=== PATIENT | female | born 1980 ===

== ENCOUNTER 2017-09-07 20:05 | Emergency (ER) | payer OTHER ==
[~2017-09-07] VITALS: Ht 170.2 cm; Wt 68.0 kg
[~2017-09-07 20:05] MED LIST: ALBU90OI INH; ALBU90OI61 INH; AZIT250 PO; CEPH500 PO; FAMO20 PO; LEVFLO500 PO; MULVITMINE; OMEP10ER PO; PRED10 PO; PRED20 PO; Percocet 5-3251 EACH PO; Prednisone20 MG PO; Zithromax250 MG PO; Zofran Odt8 MG SL
[2017-09-07] MEDS ORDERED: Robaxin500 MG PO (23:40)
== END 2017-09-08 00:10 | disposition home or self-care (01) ==
LOC: ER 20:05
DX: S00.11XA Contusion of right eyelid and periocular area, initial encounter (principal); S60.221A Contusion of right hand, initial encounter; R51 Headache; M25.511 Pain in right shoulder; M25.521 Pain in right elbow; J45.909 Unspecified asthma, uncomplicated; K21.9 Gastro-esophageal reflux disease without esophagitis; Z91.030 Bee allergy status; Z79.899 Other long term (current) drug therapy; Z90.710 Acquired absence of both cervix and uterus; Z90.89 Acquired absence of other organs; Y04.2XXA Assault by strike against or bumped into by another person, initial encounter
CPT/HCPCS: 73030; 73080; 73130; 96372; 99283; J0780; J1885; Q0163

== ENCOUNTER → 2018-02-25 | Outpatient (CLI) | payer OTHER ==
[~2018-02-25] MED LIST changes: +Robaxin500 MG PO
== END | disposition home or self-care (01) ==
LOC: OLS 15:15 → LAB SHORT 15:15
PROVIDERS: Nurse Practitioner
DX: Z01.419 Encounter for gynecological examination (general) (routine) without abnormal findings (principal)
CPT/HCPCS: G0145

== ENCOUNTER 2019-07-29 13:22 | Day surgery (SDC) | payer OTHER ==
[~2019-07-29] VITALS: Ht 170.2 cm; Wt 73.7 kg
--- NOTE | 2019-07-29 14:28 | NUR ---
07/29/19 1428 Fara Shankar S PT. HAVING UPPER ABD. PAIN. FEELS LIKE IT IS FREEZING & THEN FULL FEELING. THIS IS WHAT SHE DEALS WITH EVERYDAY PER PT.
--- NOTE | 2019-07-29 16:24 | NUR ---
07/29/[address] STARTED UPPER ENDO AT 1447 AFTER PT. HAD HAD 200MG IV PROPOFOL & 2MG IV VERSED. PT. WITH STRIDOR SOUNDS, START OF A LARYNGOSPASM SO 30MG IV 2%LIDOCAINE GIVEN IV PER DR. ROONEY ORDER AT 1449. DR. ROONEY HAD PULLED OUT HIS SCOPE TO HAVE PT. WAKE UP. PT. SATS DOWN TO 91%. JAW THRUST PERFORMED, O2 UP TO 5L/NC. PT. WAS ALSO SUCTIONED FOR LARGE AMT. CLEAR SECRETIONS. PT. COUGHING WHEN SCOPE INSERTED & PT. ALSO COUGHING AFTER DR. FERNANDEZ PULLED SCOPE OUT. 1454 ROBINUL 0.2MG IV GIVEN TO PT. PER ORDER TO HELP DRY OUT SECRETIONS. 1457 PT. AWAKE & TALKING & EXPLAINED TO HER THAT WE HAD TO WAKE HER UP SINCE SHE STARTED COUGHING. ALSO EXPLAINED TO HER THAT WE WERE GOING TO PUT HER BACK TO SLEEP. BITE BLOCK PLACED AGAIN & STARTED RESEDATING PT. AT 1457. DR. ROONEY RESTARTED UPPER AT 1500. JAW THRUST WAS PERFORMED T.O. CASE. ALSO SUCTIONED OFF & ON FOR CLEAR SECRETIONS. O2 WAS LEFT AT 5L/NC FOR PROCEDURE. PT. WAS ALSO GIVEN 4MG IV ZOFRAN AT 1437 PRIOR TO START OF 1ST ATTEMPT AT UPPER. PT. HAD VERBALIZED THAT SHE USUALLY GETS SICK AFTER HAVING ANESTHESIA.
--- NOTE | 2019-07-29 16:30 | NUR ---
07/29/19 1630 RaadFara S PT. TAKEN TO SD 1527. PT. COUGHING & WITH SCATTERED WHEEZES. SATS 98-100%. PT. DENIED SOB BUT VERBALIZES HAVING SEVERE ASTHMA ATTACKS & USES HER INHALER VERY OFTEN T.O. THE DAY. PT. HAD ASKED HER FOR HER INHALER BUT HAD LEFT IT IN THE CAR. DR. ROONEY WAS NOTIFIED & A DUO NEB. WAS GIVEN PER DR. SAAVEDRA. PT. DENIED HAVING A SORE THROAT. PT. DID FEEL IN HER CHEST THAT SHE WAS HAVING SOME WHEEZING. PT. WITHOUT WHEEZING AFTER DUO NEB. PT. DID VERBALIZE THAT HER LUNGS FELT BETTER AFTER RECEIVING HER DUO NEB.
== END 2019-07-29 16:00 | disposition home or self-care (01) ==
LOC: ORSCSDS 13:22
PROVIDERS: Internal Medicine Gastroenterology
PROC: 0DB68ZX Excision of Stomach, Via Natural or Artificial Opening Endoscopic, Diagnostic (ICD-10-PCS; principal; 2019-07-29 14:45)
PROC: 0DB58ZX Excision of Esophagus, Via Natural or Artificial Opening Endoscopic, Diagnostic (ICD-10-PCS; principal; 2019-07-29 14:45)
PROC: 0DB98ZX Excision of Duodenum, Via Natural or Artificial Opening Endoscopic, Diagnostic (ICD-10-PCS; principal; 2019-07-29 14:45)
DX: K21.9 Gastro-esophageal reflux disease without esophagitis (principal); K22.70 Barrett's esophagus without dysplasia; K57.10 Diverticulosis of small intestine without perforation or abscess without bleeding; K44.9 Diaphragmatic hernia without obstruction or gangrene; K29.50 Unspecified chronic gastritis without bleeding; R19.7 Diarrhea, unspecified; J45.909 Unspecified asthma, uncomplicated; Z79.899 Other long term (current) drug therapy
CPT/HCPCS: 88305; 88342; J2250; J2405; J2704; J7120

== ENCOUNTER 2019-10-02 09:50 | Day surgery (SDC) | payer OTHER ==
[~2019-10-02] VITALS: Ht 170.2 cm; Wt 72.5 kg
--- NOTE | 2019-10-02 12:47 | NUR ---
10/02/19 1247 Fara Shankar LATE ENTRY 1114 PT. VERBALIZES SHE GETS NAUSEATED WITH ALL ANESTHESIA MEDS. PER DR. NEVIN BERRY TO GIVE ZOFRAN 4MG IV PRIOR TO START OF PROCEDURE.
== END 2019-10-02 12:20 | disposition home or self-care (01) ==
LOC: ORSCSDS 09:50
PROVIDERS: Internal Medicine Gastroenterology
PROC: 0DBE8ZX Excision of Large Intestine, Via Natural or Artificial Opening Endoscopic, Diagnostic (ICD-10-PCS; principal; 2019-10-02 11:00)
DX: R10.9 Unspecified abdominal pain (principal); R19.7 Diarrhea, unspecified; K22.70 Barrett's esophagus without dysplasia; J45.909 Unspecified asthma, uncomplicated; K21.9 Gastro-esophageal reflux disease without esophagitis; Z79.899 Other long term (current) drug therapy
CPT/HCPCS: 88305; J2250; J2405; J2704; J7120

== ENCOUNTER → 2020-01-05 | Outpatient (CLI) | payer OTHER ==
[~2020-01-05] MED LIST changes: +Norco 5-325 Ta1 EACH PO; +ONDA4ODT PO
[2020-01-05 11:06] LABS: BASOPHILS ABSOLUTE AUTO 0.07 K/mm3 (0.00-0.23); BASOPHILS PERCENT AUTO 1 % (0-2); EOSINOPHILS ABSOLUTE AUTO 0.25 K/mm3 (0.00-0.68); EOSINOPHILS PERCENT AUTO 3 % (0-6); Hematocrit 41.1 % (33.0-51.0); Hemoglobin 14.2 g/dL (11.5-16.0); IMMATURE GRAN ABSOLUTE AUTO 0.02 K/mm3 (0.00-0.10); IMMATURE GRAN PERCENT AUTO 0 % (0-1); LYMPHOCYTES ABSOLUTE AUTO 2.37 K/mm3 (0.84-5.20); LYMPHOCYTES PERCENT AUTO 29 % (21-46); MONOCYTES ABSOLUTE AUTO 0.51 K/mm3 (0.16-1.47); MONOCYTES PERCENT AUTO 6 % (4-13); Mean Corpuscular HGB 30.3 pg (26.0-34.0); Mean Corpuscular HGB Conc 34.5 g/dL (31.5-36.5); Mean Corpuscular Volume 88 fL (80-100); Mean Platelet Volume 10.9 fL (9.1-12.4); NEUTROPHILS ABSOLUTE AUTO 5.04 K/mm3 (1.96-9.15); NEUTROPHILS PERCENT AUTO 61 % (41-73); Platelet Count 278 K/mm3 (150-400); RDW Coefficient Variation 12.4 % (11.7-14.2); RDW Standard Deviation 39.3 fL (35.1-46.3); Red Blood Cell Count 4.68 M/mm3 (3.80-5.20); White Blood Cell Count 8.26 K/mm3 (4.00-11.30)
[2020-01-05 11:18] LABS: Alanine Aminotransfer (ALT/SGP 34 U/L (12-78); Albumin, Blood 4.4 g/dL (3.4-5.0); Albumin/Globulin Ratio 1.4 (0.8-1.8); Alk Phos 55 U/L (40-126); Anion Gap 10 mmol/L (6-16); Aspartate Aminotrans (AST/SGOT 20 U/L (12-37); Bilirubin, Total 0.6 mg/dL (0.1-1.0); Blood Urea Nitrogen 10 mg/dL (8-24); Bun/Creatinine Ratio 11.9 (12.0-20.0); CO2, Blood 29 mmol/L (21-32); Calcium, Blood 9.1 mg/dL (8.5-10.1); Chloride, Blood 103 mmol/L (98-108); Creatinine, Blood 0.84 mg/dL (0.40-1.00); Globulin, Blood 3.1 g/dL (2.2-4.0); Glomerular Filtration Rate >60 (60-); Glucose, Blood 101 mg/dL (70-99); Potassium, Blood 3.4 mmol/L (3.5-5.5); Sodium, Blood 142 mmol/L (136-145); Total Protein, Blood 7.5 g/dL (6.4-8.2)
== END | disposition home or self-care (01) ==
LOC: LAB SHORT 11:02 → LAB EV 11:02
PROVIDERS: Physician Assistant Medical
DX: R10.13 Epigastric pain (principal)
CPT/HCPCS: 80053; 83690; 85025